=== PATIENT | female | born 1980 | race Caucasian/White ===

== ENCOUNTER 2016-10-21 19:35 | Emergency (ER) | payer OTHER ==
[~2016-10-21] VITALS: Ht 157.5 cm; Wt 90.8 kg
[~2016-10-21 19:35] MED LIST: DIFLUCAN150 MG PO; GLUCOPHAGE500 MG PO; KEFLEX500 MG PO; PERCOCET 5/31 TABLET PO; PYRIDIUM100 MG PO; SINGULAIR10 MG PO; ULTRAM50 MG PO; ZOVIRAX800 M1 PO
[2016-10-21 20:16] LABS: CHLORIDE 104 mEq/L (99-109); POTASSIUM 4.4 mEq/L (3.7-5.4); SODIUM 139 mEq/L (136-147)
[2016-10-21 20:18] LABS: GLUCOSE 327 mg/dL (70-99)
[2016-10-21 20:19] LABS: ANION GAP 10 MEQ/L (2-14)
[2016-10-21 20:22] LABS: GFR ESTIMATE (CALCULATED) > 59 mL/min/
[2016-10-21 20:23] LABS: UREA NITROGEN (BUN) 7 mg/dL (9-23)
[2016-10-21 20:34] LABS: TROP-I INTERPRETATION NEGATIVE; TROPONIN-I < 0.01 ng/mL (0.0-0.30)
[2016-10-21] MEDS ORDERED: NAPROSYN500 MG PO (21:10)
[2016-10-21 21:56] VITALS: BP 134/93
== END 2016-10-21 21:57 | disposition home or self-care (01) ==
LOC: EME → EDBD 19:35 → EME 19:35
PROVIDERS: Emergency Medicine
DX: M94.0 Chondrocostal junction syndrome [Tietze] (principal); E11.9 Type 2 diabetes mellitus without complications; Z79.84 Long term (current) use of oral hypoglycemic drugs
CPT/HCPCS: 71020; 80048; 84484; 93005; 99281; 99284; J1885